=== PATIENT | male | born 1985 | race Caucasian/White ===

== ENCOUNTER 2021-10-10 04:53 | Emergency (ER) | payer BC, OTHER ==
[~2021-10-10] VITALS: Ht 172.7 cm; Wt 113.4 kg
[2021-10-10 08:29] VITALS: BP 118/78
== END 2021-10-10 08:28 | disposition home or self-care (01) ==
LOC: ER 04:53
PROVIDERS: Student in an Organized Health Care Education/Training Program
DX: J06.9 Acute upper respiratory infection, unspecified (principal); Z20.822 Contact with and (suspected) exposure to COVID-19; I10 Essential (primary) hypertension; F41.9 Anxiety disorder, unspecified; F32.9 Major depressive disorder, single episode, unspecified; Z88.5 Allergy status to narcotic agent